=== PATIENT | male | born 1955 | race Caucasian/White ===

== ENCOUNTER 2016-10-10 11:28 | Outpatient (CLI) | payer OTHER ==
--- NOTE | 2016-10-10 14:13 | DIAGNOSTIC IMAGING REPORT ---
PROCEDURE: US ART LOW EXT WITH GET-RIGHT INDICATION: F/U PULMONARY EMBOLISM TECHNIQUE: Color Doppler duplex imaging of the right lower extremity arterial system was performed. ABIs were not performed secondary to the presence of thrombus in the venous system. COMPARISON: 05/18/2013 FINDINGS: VESSELS/ WAVEFORMS: Triphasic arterial flow throughout the right lower extremity. Minimal plaque. No focal stenosis. PEAK SYSTOLIC VELOCITIES: External iliac: 123 cm/second. Common femoral artery: 85 cm/second. Profunda femoral artery: 73 cm/second. Proximal superficial femoral artery: 128 cm/second. Mid superficial femoral artery: 106 cm/second. Distal superficial femoral artery: 53 cm/second. Popliteal artery: 69 cm/second. Proximal posterior tibial artery: 82 cm/second. Proximal anterior tibial artery: 82 cm/second. Peroneal artery: 40 cm/second. Distal posterior tibial artery: 90 cm/second. Dorsalis pedis artery: 76 cm/second. IMPRESSION: 1. Normal triphasic arterial flow in the right lower extremity. No change compared to prior. 2. ABIs not performed secondary to extensive right lower extremity thrombus.
--- NOTE | 2016-10-10 14:27 | DIAGNOSTIC IMAGING REPORT ---
PROCEDURE: US VENOUS - RIGHT EXT INDICATION: F/U PULMONARY EMBOLISM TECHNIQUE: Duplex sonography of the deep venous system in the right lower extremity was performed. Compression and augmentation techniques were used. COMPARISON: Right lower extremity venous duplex ultrasound from [facility] 06/28/2016. FINDINGS: Thrombosis of the right lower extremity with almost complete occlusion of the external iliac vein, nonocclusive thrombus in the common femoral vein, trickle flow in the superficial femoral and popliteal veins. Improved [id number] with resolved thrombus in the posterior tibial vein and trace clot in the peroneal vein. There is a nonocclusive thrombus in the lesser saphenous vein. Thrombosis of the deep femoral vein has resolved. Trace of thrombus in the distal greater saphenous vein. IMPRESSION: 1. Extensive right lower extremity DVT from the external iliac to the popliteal veins. Improvement of thrombosis below the knee with resolved thrombus in the posterior tibial vein and trace clot in the peroneal vein. 2. Resolved thrombus of the deep femoral vein 3. Trace clot in the distal greater saphenous vein.
--- NOTE | 2016-10-10 14:27 | DIAGNOSTIC IMAGING REPORT ---
PROCEDURE: US VENOUS - RIGHT EXT INDICATION: F/U PULMONARY EMBOLISM TECHNIQUE: Duplex sonography of the deep venous system in the right lower extremity was performed. Compression and augmentation techniques were used. COMPARISON: Right lower extremity venous duplex ultrasound from [facility] 06/28/2016. FINDINGS: Thrombosis of the right lower extremity with almost complete occlusion of the external iliac vein, nonocclusive thrombus in the common femoral vein, trickle flow in the superficial femoral and popliteal veins. Improved [id number] with resolved thrombus in the posterior tibial vein and trace clot in the peroneal vein. There is a nonocclusive thrombus in the lesser saphenous vein. Thrombosis of the deep femoral vein has resolved. Trace of thrombus in the distal greater saphenous vein. IMPRESSION: 1. Extensive right lower extremity DVT from the external iliac to the popliteal veins. Improvement of thrombosis below the knee with resolved thrombus in the posterior tibial vein and trace clot in the peroneal vein. 2. Resolved thrombus of the deep femoral vein 3. Trace clot in the distal greater saphenous vein.
[2016-11-11] MEDS ORDERED: WARFARIN SODIUM4 MG PO (12:27)
[2016-11-11] MEDS ORDERED: MULTIPLE VITAMIN PO (12:28)
[2016-11-11] MEDS ORDERED: OMEGA 31000 MG PO (12:28)
[2016-11-11] MEDS ORDERED: TAMSULOSIN HCL0.4 MG PO (12:30)
[2016-11-11] MEDS ORDERED: LANSOPRAZOLE15 MG PO (12:30)
[2016-11-11] MEDS ORDERED: LOVENOX80 MG/0.8 SC (16:22)
== END 2016-10-10 23:00 ==
LOC: US SRH 11:28
DX: I82.421 Acute embolism and thrombosis of right iliac vein (principal); I82.431 Acute embolism and thrombosis of right popliteal vein

== ENCOUNTER 2016-11-13 09:57 | Day surgery (SDC) | payer OTHER ==
[~2016-11-13] VITALS: Ht 182.9 cm; Wt 83.9 kg
[~2016-11-13 09:57] MED LIST: LANSOPRAZOLE15 MG PO; LOVENOX80 MG/0.8 SC; MULTIPLE VITAMIN PO; OMEGA 31000 MG PO; TAMSULOSIN HCL0.4 MG PO; WARFARIN SODIUM4 MG PO
[2016-11-13] MEDS ORDERED: NORCO1 TA1 PO (13:21)
--- NOTE | 2016-11-13 13:21 | Provider's Discharge Care Plan ---
Problem, Goal, Plan Problem List 1. Basal cell carcinoma of leg
--- NOTE | 2016-11-13 13:21 | Provider's Discharge Care Plan ---
Problem, Goal, Plan Problem List 1. Basal cell carcinoma of leg
--- NOTE | 2016-11-13 14:10 | OPERATIVE REPORT ---
DATE OF SURGERY: 11/13/2016 SURGEON: Tera Fernandez MD PREOPERATIVE DIAGNOSIS: 1. Ulcerated basal cell carcinoma of right leg POSTOPERATIVE DIAGNOSIS: 1. Ulcerated basal cell carcinoma of right leg PROCEDURE PERFORMED: 1. Wide excision of basal cell carcinoma of right leg with split-thickness skin graft. ANESTHESIA: General. INDICATIONS: The patient is a 61-year-old man with an ulcerated lesion of the right leg with a punch biopsy demonstrating basal cell carcinoma. SURGICAL TECHNIQUE: The patient was taken to the operating room, where a general anesthetic was administered and the patient prepped and draped in the usual sterile fashion. IV antibiotics were given. The ulcerated lesion was palpated and a wide excision marked out on the skin measuring 6.5 x 5 cm, excised all indurated tissue. A local anesthetic of 1% Xylocaine and 0.5% Marcaine were infiltrated and the donor site was also measured out and infiltrated in the upper thigh. The skin graft was first harvested and meshed to 1.5 to 1 ratio. The ulcerated lesion was then excised down to the fascial level, removing a reasonable margin of skin around any induration present. Meticulous pinpoint hemostasis was obtained with electrocautery and local anesthetic packing. After hemostasis was complete, the skin graft was applied and stapled at its margins using skin stella. It appeared to conform reasonably well to the underlying tissue bed. A single layer of Adaptic gauze was placed on the graft and covered with cotton balls that had been expanded and soaked in a mixture of local anesthetic and mineral oil. These were prepped in place with plain gauze sponges and held in place with a sterile Kerlix wrap. A compression dressing of Derian bandage was placed over the top and the patient left in good condition. The donor site was treated with a membrane plastic dressing.
[2016-11-13 14:36] VITALS: BP 132/73
== END 2016-11-13 15:00 | disposition home or self-care (01) ==
LOC: OR SRH 09:57 → OB SRH 09:58 → OR SRH 11:00
PROVIDERS: Surgery
PROC: 0HRKX74 Replacement of Right Lower Leg Skin with Autologous Tissue Substitute, Partial Thickness, External Approach (ICD-10-PCS; principal; 2016-11-13 11:00)
PROC: 0HBKXZX Excision of Right Lower Leg Skin, External Approach, Diagnostic (ICD-10-PCS; principal; 2016-11-13 11:00)
PROC: 0HBHXZZ Excision of Right Upper Leg Skin, External Approach (ICD-10-PCS; principal; 2016-11-13 11:00)
DX: C44.712 Basal cell carcinoma of skin of right lower limb, including hip (principal); Z86.718 Personal history of other venous thrombosis and embolism; Z79.01 Long term (current) use of anticoagulants